=== PATIENT | male | born 1990 | race Caucasian/White ===

== ENCOUNTER 2022-11-10 15:26 | Emergency (ER) | payer OTHER, SELFPAY ==
[2022-11-10 15:39] VITALS: BP 135/82; PULSE 68; RESP 16; TEMP 36.8; O2SAT 98; BMI 28.9
--- NOTE | 2022-11-10 15:50 | ED.FALL1 ---
HPI - Fall General Chief Complaint: Fall Stated Complaint: LOWER EXTERMITY INJURY Time Seen by Provider: 11/10/22 15:50 Mode of arrival: Wheelchair History of Present Illness HPI Narrative: Patient presents to emergency department with left foot pain. Patient states he twisted his ankle and he fell and hit a trashcan when he fell. Did not hit his head or having loss consciousness. He denies any pain to his ankle. Pain is intermittently foot. He denies any paresthesias, weakness. He states it hurts a lot when he bears weight. He took ibuprofen and Tylenol prior to coming to the emergency department. He has applied ice. He denies any previous injury. Related Data Previous Rx's Medication Instructions Recorded ibuprofen 800 mg tablet 800 mg PO Q8H PRN pain #20 tabs 11/10/22 tramadol 50 mg tablet 50 mg PO TID PRN pain 5 days #10 11/10/22 tabs Allergies Allergy/AdvReac Type Severity Reaction Status Date / Time No Known Drug Allergies Allergy Verified 11/10/22 15:39 Review of Systems ROS Status of ROS 10 or more systems reviewed and unremarkable except as noted in history and below Exam Narrative Exam Narrative: Nurses notes and vital signs reviewed and patient is not hypoxic. General: Nontoxic, Well-appearing and in no apparent distress. Skin: Warm, dry, no pallor noted. No Rash Head: Normocephalic, atraumatic. Neck: Supple, non-tender. Eye: Pupils are equal, round and EOMI. No scleral icterus. Ears, Nose, Mouth, and Throat: TM clear, no posterior oropharynx erythema or nasal mucosal hypertrophy, uvula is mid-line Oral mucosa is moist Cardiovascular: Regular Rate and Rhythm without murmur, gallop or rub. Respiratory: No accessory muscle use or respiratory distress. Lungs are clear to auscultation, no wheezing, rales or rhonchi Chest Wall: no tenderness Back: No midline thoracic or lumbar vertebral tenderness. No CVA tenderness Musculoskeletal: tenderness to palpation to the left midfoot. There is mild ecchymosis. DP +2, to be +2. Capillary refill is brisk. range of Motion is limited by pain. no calf or popliteal tenderness, no lower extremity edema/swelling GI: Abdomen is soft, non-distended. Normal bowel sounds. No masses appreciated. No tenderness to palpation. No rebound, guarding, or rigidity noted. Neurological: A&O x4. No cranial nerve dysfunction observed. No truncal ataxia. Moves all extremities. Sensation intact. Psychiatric: Cooperative and interactive. Normal mood and affect. Constitutional Vital Signs - 24 hr 11/10/22 15:39 Temperature 98.2 F Pulse Rate [Monitor] 68 Respiratory Rate 16 Blood Pressure [Left Arm] 135/82 H Pulse Oximetry 98 Oxygen Delivery Method Room Air Course Vital Signs Vital signs: Vital Signs Temperature 98.2 F 11/10/22 15:39 Pulse Rate 68 11/10/22 15:39 Respiratory Rate 16 11/10/22 15:39 Blood Pressure 135/82 H 11/10/22 15:39 Pulse Oximetry 98 11/10/22 15:39 Oxygen Delivery Method Room Air 11/10/22 15:39 Temperature 98.2 F 11/10/22 15:39 Pulse Rate 68 11/10/22 15:39 Respiratory Rate 16 11/10/22 15:39 Blood Pressure 135/82 H 11/10/22 15:39 Pulse Oximetry 98 11/10/22 15:39 Oxygen Delivery Method Room Air 11/10/22 15:39 MDM - Fall MDM Narrative Medical decision making narrative: Ice was applied. Foot x-ray results discussed with patient. He was placed in an Moy wrap, fracture shoe. He is weightbearing as tolerated. He is cooperative with podiatry. Patient is given a prescription for Ultram and Motrin. At this time the patient is without objective evidence of an acute process requiring hospitalization or inpatient management. The patient has remained hemodynamically stable. No additional indication for emergent studies at this time. I answered all questions. Discussed discharge instructions including standard anticipatory guidance and what should prompt a return to the emergency department, including if they get worse are not getting better or develops any new or concerning symptoms. I've given them specific time frame in which to follow-up, and who to follow-up with. The patient demonstrates understanding. Patient is nontoxic and stable for discharge with outpatient follow-up. This note was created with the assistance of a speech recognition program. Although the intention is to generate documents that actually reflects the content of the visit, no guarantees can be provided that every mistake has been identified and corrected by editing. Discharge Plan Discharge Chief Complaint: Fall Clinical Impression: Sprain of foot, left Patient Disposition: Home, Self-Care Time of Disposition Decision: 17:30 Condition: Good Mode of Transportation: Private Vehicle Prescriptions / Home Meds: New ibuprofen 800 mg tablet 800 mg PO Q8H PRN (Reason: pain) Qty: 20 0RF tramadol 50 mg tablet 50 mg PO TID PRN (Reason: pain) 5 Days Qty: 10 0RF Rx Instructions: S93 Instructions: Foot Sprain (ED) Stand Alone Forms: Portal Instructions Referrals: MITCHEL VEGA [Primary Care Provider] - 1 week Inocencio Zhu MD [Physician] - 1 week
--- NOTE | 2022-11-10 15:52 | XR_ITS ---
The [address] [address] Patient Name: СЕРГЕЙ VICTORIA MRN: [id number] date: 1990 Sex: M Assigned Patient Location: ED.MAIN Current Patient Location: ER Accession/Order Number: [id number] Exam Date: 11/10/2022 16:18 Report Date: 11/10/2022 16:59 At the request of: ABDIAZIZ BERNARD Procedure: XR foot LT min 3V EXAM: XR foot LT min 3V HISTORY: PAIN COMPARISON: None. TECHNIQUE: 3 views of the left foot are performed. FINDINGS: There is no acute fracture. The bony structures are intact. The soft tissues are unremarkable. Joint spaces are maintained. IMPRESSION: No acute bony abnormality. Electronically authenticated by: JACEK MOHR Date: 11/10/2022 16:59
[2022-11-10] MEDS: TRAMADOL HCL 50 MG TABLET PO (17:55)
== END 2022-11-10 18:09 | disposition home or self-care (01) ==
PROVIDERS: Emergency Provider Emergency Medicine; Family Provider Internal Medicine; PCP Internal Medicine
DX: S93.602A Unspecified sprain of left foot, initial encounter (principal); X50.1XXA Overexertion from prolonged static or awkward postures, initial encounter
CPT/HCPCS: 73630; 99283